=== PATIENT | female | born 1995 | race Caucasian/White ===

== ENCOUNTER 2019-08-11 14:37 | Emergency (ER) | payer OTHER ==
[~2019-08-11] VITALS: Ht 147.3 cm; Wt 54.4 kg
[2019-08-11] MEDS ORDERED: NOHOMEMEDICATIONS (15:08)
[2019-08-11] MEDS ORDERED: NORCO 5-325 TA1 EAC1 PO (16:34)
[2019-08-11] MEDS ORDERED: IBUPROFEN 800800 M1 PO (16:34)
[2019-08-11 16:51] VITALS: BP 109/50
== END 2019-08-11 16:51 | disposition home or self-care (01) ==
LOC: M.ERS 14:37
DX: S92.351A Displaced fracture of fifth metatarsal bone, right foot, initial encounter for closed fracture (principal); Z88.8 Allergy status to other drugs, medicaments and biological substances; W20.8XXA Other cause of strike by thrown, projected or falling object, initial encounter; Y92.89 Other specified places as the place of occurrence of the external cause; Y93.89 Activity, other specified; Y99.8 Other external cause status